=== PATIENT | female | born 1960 | race Caucasian/White ===

== ENCOUNTER 2017-08-22 18:32 | Emergency (ER) | payer BC ==
[~2017-08-22] VITALS: Ht 154.9 cm; Wt 64.4 kg
[2017-08-22] MEDS ORDERED: CARV3.125 PO (19:37)
[2017-08-22] MEDS ORDERED: DULO60 (19:38)
[2017-08-22] MEDS ORDERED: Desyrel50 MG (19:38)
[2017-08-22] MEDS ORDERED: LORA.5 PO (19:38)
== END 2017-08-22 20:46 | disposition home or self-care (01) ==
LOC: ER 18:32
DX: S61.412A Laceration without foreign body of left hand, initial encounter (principal); Z88.2 Allergy status to sulfonamides; Z91.040 Latex allergy status; Z79.899 Other long term (current) drug therapy; W26.0XXA Contact with knife, initial encounter
CPT/HCPCS: 12001; 73130; 99283

== ENCOUNTER → 2017-09-08 | Outpatient (CLI) | payer BC ==
[~2017-09-08] MED LIST: CARV3.125 PO; DULO60; Desyrel50 MG; LORA.5 PO
== END ==
LOC: LAB 17:00
DX: N39.0 Urinary tract infection, site not specified (principal)
CPT/HCPCS: 87077; 87086; 87186

== ENCOUNTER → 2017-12-11 | Outpatient (CLI) | payer BC | END | disposition home or self-care (01) | LOC: LAB SHORT 18:20 → LAB EV 18:20 | DX: N39.0 Urinary tract infection, site not specified (principal) | CPT/HCPCS: 87077; 87086; 87186 ==

== ENCOUNTER → 2018-01-30 | Outpatient (CLI) | payer BC | END | disposition home or self-care (01) | LOC: LAB SHORT 12:33 → LAB EV 12:33 | DX: N39.0 Urinary tract infection, site not specified (principal) | CPT/HCPCS: 87077; 87086; 87186 ==